=== PATIENT | male | born 1935 | race Caucasian/White ===

== ENCOUNTER 2018-05-05 09:26 | Inpatient (IN) | payer OTHER ==
[~2018-05-05] VITALS: Ht 180.3 cm; Wt 97.4 kg
[~2018-05-05 09:26] MED LIST: ACET325 PO; ALPR.25 PO; ASPI325 PO; CARV3.125 PO; CHLORTABS4 MG PO; CYAN1000 PO; FOLI1 PO; FURO20 PO; GABA100 PO; LISI20 PO; LOSA50; METTREX2.5 PO; MUCUS RELIEF200 MG PO; NAPR220; NIAC500; NIAC500 PO; OMEP10ER; OMEP20ER; OMEPRAZOLE MAGN20 MG PO; OXYM.05NI; POTA8 PO; PRED5 PO; PSYL5.85P PO; SPIR25 PO; SULF500A PO
[2018-05-05 10:26] LABS: BASOPHILS ABSOLUTE AUTO 0.02 K/mm3 (0.00-0.23); BASOPHILS PERCENT AUTO 0 % (0-2); EOSINOPHILS ABSOLUTE AUTO 0.03 K/mm3 (0.00-0.68); EOSINOPHILS PERCENT AUTO 0 % (0-6); Hematocrit 34.6 % (37.0-53.0); Hemoglobin 11.3 g/dL (13.5-17.5); IMMATURE GRAN PERCENT AUTO 1 % (0-1); LYMPHOCYTES ABSOLUTE AUTO 0.56 K/mm3 (0.84-5.20); LYMPHOCYTES PERCENT AUTO 4 % (21-46); MONOCYTES ABSOLUTE AUTO 0.81 K/mm3 (0.16-1.47); MONOCYTES PERCENT AUTO 6 % (4-13); Mean Corpuscular HGB 35.9 pg (26.0-34.0); Mean Corpuscular HGB Conc 32.7 g/dL (31.5-36.5); Mean Corpuscular Volume 110 fL (80-100); Mean Platelet Volume 10.7 fL (9.1-12.4); NEUTROPHILS ABSOLUTE AUTO 11.95 K/mm3 (1.96-9.15); NEUTROPHILS PERCENT AUTO 89 % (41-73); Platelet Count 154 K/mm3 (150-400); RDW Coefficient Variation 14.5 % (11.7-14.2); RDW Standard Deviation 58.3 fL (35.1-46.3); Red Blood Cell Count 3.15 M/mm3 (4.30-5.90); White Blood Cell Count 13.47 K/mm3 (4.00-11.30)
[2018-05-05 11:12] LABS: Albumin, Blood 3.3 g/dL (3.4-5.0); Bilirubin, Total 1.4 mg/dL (0.1-1.0); Calcium, Blood 8.6 mg/dL (8.5-10.1); Creatinine, Blood 1.67 mg/dL (0.60-1.20); Globulin, Blood 3.2 g/dL (2.2-4.0); Potassium, Blood 4.1 mmol/L (3.5-5.5); Total Protein, Blood 6.5 g/dL (6.4-8.2); Troponin I 0.236 ng/mL (0.000-0.040)
[2018-05-05] MEDS ORDERED: CYAN500 PO (13:29)
[2018-05-05 13:44] LABS: International Normalized Ratio 1.13; Prothrombin Time Results 11.6 Sec (9.7-11.5)
[2018-05-05 16:12] LABS: Appearance, Urine Clear (Clear); Bilirubin, Urine Neg (Neg); Blood, Urine 3+ (Neg); Color, Urine Yellow (P-Yellow); Glucose Qualitative, Urine Neg (Neg); Ketones, Urine 2+ (Neg); Leukocyte Esterase, Urine Neg (Neg); Nitrite, Urine Neg (Neg); Protein, Urine 2+ (Neg); Urobilinogen, Urine NORM (Normal)
[2018-05-05 16:26] LABS: Bacteria Few /hpf; Squamous Epithelial Cells Few /hpf (Few); White Blood Cells, Urine 0-2 /hpf (0-5)
[2018-05-06 05:34] LABS: BASOPHILS ABSOLUTE AUTO 0.01 K/mm3 (0.00-0.23); BASOPHILS PERCENT AUTO 0 % (0-2); EOSINOPHILS PERCENT AUTO 0 % (0-6); Hematocrit 32.1 % (37.0-53.0); Hemoglobin 10.6 g/dL (13.5-17.5); IMMATURE GRAN ABSOLUTE AUTO 0.05 K/mm3 (0.00-0.10); IMMATURE GRAN PERCENT AUTO 1 % (0-1); LYMPHOCYTES ABSOLUTE AUTO 0.28 K/mm3 (0.84-5.20); LYMPHOCYTES PERCENT AUTO 3 % (21-46); MONOCYTES ABSOLUTE AUTO 0.12 K/mm3 (0.16-1.47); MONOCYTES PERCENT AUTO 1 % (4-13); Mean Corpuscular HGB 35.8 pg (26.0-34.0); Mean Corpuscular Volume 108 fL (80-100); Mean Platelet Volume 11.1 fL (9.1-12.4); NEUTROPHILS ABSOLUTE AUTO 7.95 K/mm3 (1.96-9.15); NEUTROPHILS PERCENT AUTO 95 % (41-73); Platelet Count 159 K/mm3 (150-400); RDW Coefficient Variation 14.1 % (11.7-14.2); RDW Standard Deviation 55.2 fL (35.1-46.3); Red Blood Cell Count 2.96 M/mm3 (4.30-5.90); White Blood Cell Count 8.41 K/mm3 (4.00-11.30)
[2018-05-06 06:21] LABS: Anion Gap 12 mmol/L (6-16); Blood Urea Nitrogen 33 mg/dL (8-24); Bun/Creatinine Ratio 28.9 (12.0-20.0); CO2, Blood 22 mmol/L (21-32); Calcium, Blood 8.4 mg/dL (8.5-10.1); Chloride, Blood 105 mmol/L (98-108); Creatinine, Blood 1.14 mg/dL (0.60-1.20); Glomerular Filtration Rate >60 (60-); Glucose, Blood 138 mg/dL (70-99); Potassium, Blood 3.7 mmol/L (3.5-5.5); Sodium, Blood 139 mmol/L (136-145)
[2018-05-07 05:00] LABS: BASOPHILS ABSOLUTE AUTO 0.01 K/mm3 (0.00-0.23); BASOPHILS PERCENT AUTO 0 % (0-2); EOSINOPHILS PERCENT AUTO 0 % (0-6); Hematocrit 31.1 % (37.0-53.0); Hemoglobin 10.2 g/dL (13.5-17.5); IMMATURE GRAN ABSOLUTE AUTO 0.09 K/mm3 (0.00-0.10); IMMATURE GRAN PERCENT AUTO 1 % (0-1); LYMPHOCYTES ABSOLUTE AUTO 0.76 K/mm3 (0.84-5.20); LYMPHOCYTES PERCENT AUTO 7 % (21-46); MONOCYTES ABSOLUTE AUTO 0.59 K/mm3 (0.16-1.47); MONOCYTES PERCENT AUTO 5 % (4-13); Mean Corpuscular HGB 35.3 pg (26.0-34.0); Mean Corpuscular HGB Conc 32.8 g/dL (31.5-36.5); Mean Corpuscular Volume 108 fL (80-100); Mean Platelet Volume 10.9 fL (9.1-12.4); NEUTROPHILS ABSOLUTE AUTO 10.23 K/mm3 (1.96-9.15); NEUTROPHILS PERCENT AUTO 88 % (41-73); Platelet Count 157 K/mm3 (150-400); RDW Coefficient Variation 14.3 % (11.7-14.2); Red Blood Cell Count 2.89 M/mm3 (4.30-5.90); White Blood Cell Count 11.68 K/mm3 (4.00-11.30)
[2018-05-07 05:18] LABS: Albumin, Blood 2.4 g/dL (3.4-5.0); Anion Gap 9 mmol/L (6-16); Blood Urea Nitrogen 35 mg/dL (8-24); CO2, Blood 23 mmol/L (21-32); Calcium, Blood 8.2 mg/dL (8.5-10.1); Chloride, Blood 109 mmol/L (98-108); Glomerular Filtration Rate >60 (60-); Glucose, Blood 118 mg/dL (70-99); Phosphorus, Blood 2.4 mg/dL (2.5-4.9); Potassium, Blood 3.6 mmol/L (3.5-5.5); Sodium, Blood 141 mmol/L (136-145)
[2018-05-09 06:25] LABS: Anion Gap 8 mmol/L (6-16); Blood Urea Nitrogen 26 mg/dL (8-24); Bun/Creatinine Ratio 34.2 (12.0-20.0); CO2, Blood 22 mmol/L (21-32); Calcium, Blood 8.5 mg/dL (8.5-10.1); Chloride, Blood 111 mmol/L (98-108); Creatinine, Blood 0.76 mg/dL (0.60-1.20); Glomerular Filtration Rate >60 (60-); Glucose, Blood 122 mg/dL (70-99); Potassium, Blood 4.3 mmol/L (3.5-5.5); Sodium, Blood 141 mmol/L (136-145)
[2018-05-09] MEDS ORDERED: BISA10S PR (14:45)
[2018-05-09] MEDS ORDERED: BENZ100A PO (14:45)
[2018-05-09] MEDS ORDERED: CULTURELLE1 EACH PO (14:46)
[2018-05-09] MEDS ORDERED: LEVO750 PO (14:46)
[2018-05-09] MEDS ORDERED: DOCU100 PO (14:46)
== END 2018-05-09 15:08 | disposition home or self-care (01) | DRG 871 ==
LOC: ER 09:26 → MEDS 14:18
PROVIDERS: Emergency Medicine; Hospitalist; Internal Medicine
DX: A41.9 Sepsis, unspecified organism (principal); J69.0 Pneumonitis due to inhalation of food and vomit; N17.9 Acute kidney failure, unspecified; R04.2 Hemoptysis; I50.22 Chronic systolic (congestive) heart failure; Z85.46 Personal history of malignant neoplasm of prostate; Z87.891 Personal history of nicotine dependence; M06.9 Rheumatoid arthritis, unspecified; Z85.819 Personal history of malignant neoplasm of unspecified site of lip, oral cavity, and pharynx; Z92.3 Personal history of irradiation; Z79.82 Long term (current) use of aspirin; Z92.21 Personal history of antineoplastic chemotherapy; I11.0 Hypertensive heart disease with heart failure; J45.909 Unspecified asthma, uncomplicated; B96.1 Klebsiella pneumoniae [K. pneumoniae] as the cause of diseases classified elsewhere; E87.70 Fluid overload, unspecified
CPT/HCPCS: 36415; 70491; 71046; 71260; 74220; 80048; 80053; 80069; 81001; 83605; 83880; 84145; 84484; 85018; 85025; 85610; 87040; 87070; 87077; 87186; 87205; 93005; 93010; 93306; 94640; 94760; 94762; 96365; 96375; 99285-25; J0456; J0696; J1650; J1720; J2930; J7030; J7050; Q9967

== ENCOUNTER → 2018-08-04 | Outpatient (CLI) | payer OTHER ==
[~2018-08-04] MED LIST changes: +BENZ100A PO; +BISA10S PR; +CULTURELLE1 EACH PO; +CYAN500 PO; +DOCU100 PO; +LEVO750 PO
[2018-08-04 11:29] LABS: BASOPHILS ABSOLUTE AUTO 0.03 K/mm3 (0.00-0.23); BASOPHILS PERCENT AUTO 0 % (0-2); EOSINOPHILS ABSOLUTE AUTO 0.02 K/mm3 (0.00-0.68); EOSINOPHILS PERCENT AUTO 0 % (0-6); Hematocrit 33.2 % (37.0-53.0); Hemoglobin 10.6 g/dL (13.5-17.5); IMMATURE GRAN ABSOLUTE AUTO 0.04 K/mm3 (0.00-0.10); IMMATURE GRAN PERCENT AUTO 1 % (0-1); LYMPHOCYTES PERCENT AUTO 13 % (21-46); MONOCYTES ABSOLUTE AUTO 0.75 K/mm3 (0.16-1.47); MONOCYTES PERCENT AUTO 10 % (4-13); Mean Corpuscular HGB Conc 31.9 g/dL (31.5-36.5); Mean Corpuscular Volume 110 fL (80-100); Mean Platelet Volume 10.2 fL (9.1-12.4); NEUTROPHILS ABSOLUTE AUTO 5.82 K/mm3 (1.96-9.15); NEUTROPHILS PERCENT AUTO 76 % (41-73); Platelet Count 211 K/mm3 (150-400); RDW Coefficient Variation 16.9 % (11.7-14.2); RDW Standard Deviation 68.6 fL (35.1-46.3); Red Blood Cell Count 3.03 M/mm3 (4.30-5.90); White Blood Cell Count 7.66 K/mm3 (4.00-11.30)
== END | disposition home or self-care (01) ==
LOC: LAB SHORT 08:45 → LAB UCHC 08:45 → EDSTATUS 13:33
PROVIDERS: Internal Medicine Rheumatology
DX: M06.9 Rheumatoid arthritis, unspecified (principal)
CPT/HCPCS: 84450; 85025; 85651

== ENCOUNTER 2018-12-13 10:58 | Day surgery (SDC) | payer OTHER ==
[~2018-12-13 10:58] MED LIST changes: -ACET325 PO; -ASPI325 PO; +Aspir 8181 MG PO; +Feverall650 MG PR; -LISI20 PO; +LISI5 PO; -OMEPRAZOLE MAGN20 MG PO; +OMEPRAZOLE20 MG PO; -PRED5 PO; +Prednisone10 MG PO
== END 2018-12-14 22:59 | disposition home or self-care (01) ==
LOC: WOUND 10:58
DX: L97.521 Non-pressure chronic ulcer of other part of left foot limited to breakdown of skin (principal); L03.116 Cellulitis of left lower limb; I11.0 Hypertensive heart disease with heart failure; I50.22 Chronic systolic (congestive) heart failure; M06.9 Rheumatoid arthritis, unspecified; Z85.46 Personal history of malignant neoplasm of prostate

== ENCOUNTER 2018-12-22 11:21 | Day surgery (SDC) | payer OTHER | END 2018-12-22 23:27 | disposition home or self-care (01) | LOC: WOUND 11:21 | DX: L97.521 Non-pressure chronic ulcer of other part of left foot limited to breakdown of skin (principal); L03.116 Cellulitis of left lower limb; I10 Essential (primary) hypertension; M06.9 Rheumatoid arthritis, unspecified; I73.9 Peripheral vascular disease, unspecified; I11.0 Hypertensive heart disease with heart failure; I50.9 Heart failure, unspecified ==

== ENCOUNTER 2018-12-27 10:58 | Day surgery (SDC) | payer OTHER ==
[2018-12-27] MEDS ORDERED: Monodox100 MG PO (16:28)
== END 2018-12-27 22:49 | disposition home or self-care (01) ==
LOC: WOUND 10:58
DX: L97.522 Non-pressure chronic ulcer of other part of left foot with fat layer exposed (principal); I11.0 Hypertensive heart disease with heart failure; I50.22 Chronic systolic (congestive) heart failure; I73.9 Peripheral vascular disease, unspecified; F41.9 Anxiety disorder, unspecified
CPT/HCPCS: 36415; 73700; 80053; 85025; 87070; 87075; 87077; 87147; 87186; 87205; 96365; 99283-25; J2020

== ENCOUNTER 2019-01-03 10:58 | Day surgery (SDC) | payer OTHER ==
[~2019-01-03 10:58] MED LIST changes: +Monodox100 MG PO
== END 2019-01-03 23:11 | disposition home or self-care (01) ==
LOC: WOUND 10:58
DX: L97.522 Non-pressure chronic ulcer of other part of left foot with fat layer exposed (principal); I11.0 Hypertensive heart disease with heart failure; I50.22 Chronic systolic (congestive) heart failure; I73.9 Peripheral vascular disease, unspecified; F41.9 Anxiety disorder, unspecified; Z86.718 Personal history of other venous thrombosis and embolism
CPT/HCPCS: G0463

== ENCOUNTER 2019-01-10 10:48 | Day surgery (SDC) | payer OTHER | END 2019-01-10 23:43 | disposition home or self-care (01) | LOC: WOUND 10:48 | DX: L97.522 Non-pressure chronic ulcer of other part of left foot with fat layer exposed (principal); I11.0 Hypertensive heart disease with heart failure; I50.22 Chronic systolic (congestive) heart failure; I73.9 Peripheral vascular disease, unspecified; F41.9 Anxiety disorder, unspecified; Z86.718 Personal history of other venous thrombosis and embolism ==

== ENCOUNTER 2019-01-25 00:37 | Day surgery (SDC) | payer OTHER | END 2019-01-25 22:54 | disposition home or self-care (01) | LOC: WOUND 00:37 | DX: L97.522 Non-pressure chronic ulcer of other part of left foot with fat layer exposed (principal) | CPT/HCPCS: G0463 ==

== ENCOUNTER 2019-01-31 00:13 | Day surgery (SDC) | payer OTHER | END 2019-01-31 22:48 | disposition home or self-care (01) | LOC: WOUND 00:13 | PROC: 0JBR0ZZ Excision of Left Foot Subcutaneous Tissue and Fascia, Open Approach (ICD-10-PCS; principal; 2019-01-31) | DX: L97.522 Non-pressure chronic ulcer of other part of left foot with fat layer exposed (principal); M86.9 Osteomyelitis, unspecified; I73.9 Peripheral vascular disease, unspecified; I42.9 Cardiomyopathy, unspecified; F41.9 Anxiety disorder, unspecified; I11.0 Hypertensive heart disease with heart failure; I50.22 Chronic systolic (congestive) heart failure; M06.9 Rheumatoid arthritis, unspecified; Z85.21 Personal history of malignant neoplasm of larynx; Z85.46 Personal history of malignant neoplasm of prostate ==

== ENCOUNTER 2019-02-07 00:14 | Day surgery (SDC) | payer OTHER | END 2019-02-07 23:01 | disposition home or self-care (01) | LOC: WOUND 00:14 | DX: L97.521 Non-pressure chronic ulcer of other part of left foot limited to breakdown of skin (principal); M86.9 Osteomyelitis, unspecified; I11.0 Hypertensive heart disease with heart failure; I50.9 Heart failure, unspecified; M06.9 Rheumatoid arthritis, unspecified; Z85.46 Personal history of malignant neoplasm of prostate; G62.9 Polyneuropathy, unspecified; I50.22 Chronic systolic (congestive) heart failure; F41.9 Anxiety disorder, unspecified; I42.9 Cardiomyopathy, unspecified ==

== ENCOUNTER 2019-02-14 00:19 | Day surgery (SDC) | payer OTHER | END 2019-02-14 22:52 | disposition home or self-care (01) | LOC: WOUND 00:19 | DX: L97.521 Non-pressure chronic ulcer of other part of left foot limited to breakdown of skin (principal); M86.9 Osteomyelitis, unspecified; I11.0 Hypertensive heart disease with heart failure; I50.22 Chronic systolic (congestive) heart failure; M06.9 Rheumatoid arthritis, unspecified; Z85.46 Personal history of malignant neoplasm of prostate; G62.9 Polyneuropathy, unspecified; I42.9 Cardiomyopathy, unspecified; I73.9 Peripheral vascular disease, unspecified; Z85.21 Personal history of malignant neoplasm of larynx ==

== ENCOUNTER 2019-02-21 00:20 | Day surgery (SDC) | payer OTHER | END 2019-02-21 23:34 | disposition home or self-care (01) | LOC: WOUND 00:20 | DX: L97.529 Non-pressure chronic ulcer of other part of left foot with unspecified severity (principal); M86.9 Osteomyelitis, unspecified ==

== ENCOUNTER 2019-02-28 08:50 | Day surgery (SDC) | payer OTHER ==
[~2019-02-28 08:50] MED LIST changes: -ATROPINE 0.01%-10 ML SL; -Azulfidine500 MG PO; -Coreg12.5 MG PO; -FERSU300 PO; -FURO80 PO; -METO25ER PO; -MORP20L PO; -ONDA4ODT PO; -THERA1 EACH PO; -Tessalon200 MG PO
== END 2019-02-28 23:00 | disposition home or self-care (01) ==
LOC: WOUND 08:50
DX: L97.529 Non-pressure chronic ulcer of other part of left foot with unspecified severity (principal); M86.9 Osteomyelitis, unspecified; I73.9 Peripheral vascular disease, unspecified; I11.0 Hypertensive heart disease with heart failure; I50.22 Chronic systolic (congestive) heart failure

== ENCOUNTER → 2019-02-28 | Outpatient (CLI) | payer OTHER ==
[~2019-02-28] MED LIST changes: +ATROPINE 0.01%-10 ML SL; +Azulfidine500 MG PO; +Coreg12.5 MG PO; +FERSU300 PO; +FURO80 PO; +METO25ER PO; +MORP20L PO; +ONDA4ODT PO; +THERA1 EACH PO; +Tessalon200 MG PO
[2019-02-28 13:11] LABS: BASOPHILS ABSOLUTE AUTO 0.03 K/mm3 (0.00-0.23); BASOPHILS PERCENT AUTO 0 % (0-2); EOSINOPHILS ABSOLUTE AUTO 0.08 K/mm3 (0.00-0.68); EOSINOPHILS PERCENT AUTO 1 % (0-6); Hemoglobin 9.2 g/dL (13.5-17.5); IMMATURE GRAN ABSOLUTE AUTO 0.18 K/mm3 (0.00-0.10); IMMATURE GRAN PERCENT AUTO 2 % (0-1); LYMPHOCYTES ABSOLUTE AUTO 0.62 K/mm3 (0.84-5.20); LYMPHOCYTES PERCENT AUTO 7 % (21-46); MONOCYTES ABSOLUTE AUTO 0.53 K/mm3 (0.16-1.47); MONOCYTES PERCENT AUTO 6 % (4-13); Mean Corpuscular HGB 35.4 pg (26.0-34.0); Mean Corpuscular HGB Conc 32.9 g/dL (31.5-36.5); Mean Corpuscular Volume 108 fL (80-100); NEUTROPHILS ABSOLUTE AUTO 7.26 K/mm3 (1.96-9.15); NEUTROPHILS PERCENT AUTO 84 % (41-73); NRBC ABSOLUTE 0.04 K/mm3 (0.00-0.02); NRBC Auto 0.5 /100 WBC (0.0-0.2); Platelet Count 324 K/mm3 (150-400); RDW Coefficient Variation 14.4 % (11.7-14.2); RDW Standard Deviation 55.6 fL (35.1-46.3)
[2019-02-28 13:33] LABS: Alanine Aminotransfer (ALT/SGP 41 U/L (12-78); Albumin, Blood 2.8 g/dL (3.4-5.0); Albumin/Globulin Ratio 0.9 (0.8-1.8); Alk Phos 59 U/L (50-136); Anion Gap 14 mmol/L (6-16); Aspartate Aminotrans (AST/SGOT 53 U/L (12-37); Bilirubin, Total 0.5 mg/dL (0.1-1.0); Blood Urea Nitrogen 34 mg/dL (8-24); Bun/Creatinine Ratio 31.5 (12.0-20.0); CO2, Blood 23 mmol/L (21-32); Calcium, Blood 8.4 mg/dL (8.5-10.1); Chloride, Blood 92 mmol/L (98-108); Creatinine, Blood 1.08 mg/dL (0.60-1.20); Globulin, Blood 3.1 g/dL (2.2-4.0); Glomerular Filtration Rate >60 (60-); Glucose, Blood 117 mg/dL (70-99); Potassium, Blood 3.8 mmol/L (3.5-5.5); Sodium, Blood 129 mmol/L (136-145); Total Protein, Blood 5.9 g/dL (6.4-8.2)
== END | disposition home or self-care (01) ==
LOC: LAB 12:46 → LAB SHORT 12:46
PROVIDERS: Internal Medicine
DX: D64.9 Anemia, unspecified (principal); M06.00 Rheumatoid arthritis without rheumatoid factor, unspecified site; M62.81 Muscle weakness (generalized); R53.81 Other malaise; R53.83 Other fatigue
CPT/HCPCS: 80053; 85025; 85651; 86140

== ENCOUNTER 2019-03-07 00:07 | Day surgery (SDC) | payer OTHER ==
[2019-03-07] MEDS ORDERED: FERSU300 PO (13:58)
[2019-03-07] MEDS ORDERED: METO25ER PO (14:00)
[2019-03-07] MEDS ORDERED: FURO80 PO (14:02)
[2019-03-07] MEDS ORDERED: THERA1 EACH PO (14:02)
[2019-03-07] MEDS ORDERED: Azulfidine500 MG PO (14:02)
== END 2019-03-07 23:11 | disposition home or self-care (01) ==
LOC: WOUND 00:07
DX: L97.529 Non-pressure chronic ulcer of other part of left foot with unspecified severity (principal); M86.9 Osteomyelitis, unspecified; I11.0 Hypertensive heart disease with heart failure; I50.22 Chronic systolic (congestive) heart failure; G62.9 Polyneuropathy, unspecified; M06.9 Rheumatoid arthritis, unspecified; R53.1 Weakness

== ENCOUNTER 2019-03-07 10:19 | Inpatient (IN) | payer OTHER ==
[~2019-03-07] VITALS: Ht 180.3 cm; Wt 85.3 kg
[2019-03-07 11:20] LABS: BASOPHILS ABSOLUTE AUTO 0.02 K/mm3 (0.00-0.23); BASOPHILS PERCENT AUTO 0 % (0-2); EOSINOPHILS PERCENT AUTO 0 % (0-6); Hematocrit 31.8 % (37.0-53.0); Hemoglobin 10.4 g/dL (13.5-17.5); IMMATURE GRAN ABSOLUTE AUTO 0.16 K/mm3 (0.00-0.10); IMMATURE GRAN PERCENT AUTO 1 % (0-1); LYMPHOCYTES ABSOLUTE AUTO 0.34 K/mm3 (0.84-5.20); LYMPHOCYTES PERCENT AUTO 3 % (21-46); MONOCYTES ABSOLUTE AUTO 0.32 K/mm3 (0.16-1.47); MONOCYTES PERCENT AUTO 3 % (4-13); Mean Corpuscular HGB 36.1 pg (26.0-34.0); Mean Corpuscular HGB Conc 32.7 g/dL (31.5-36.5); Mean Corpuscular Volume 110 fL (80-100); Mean Platelet Volume 10.5 fL (9.1-12.4); NEUTROPHILS ABSOLUTE AUTO 10.23 K/mm3 (1.96-9.15); NEUTROPHILS PERCENT AUTO 92 % (41-73); NRBC ABSOLUTE 0.09 K/mm3 (0.00-0.02); NRBC Auto 0.8 /100 WBC (0.0-0.2); Platelet Count 268 K/mm3 (150-400); RDW Coefficient Variation 15.4 % (11.7-14.2); RDW Standard Deviation 61.1 fL (35.1-46.3); Red Blood Cell Count 2.88 M/mm3 (4.30-5.90); White Blood Cell Count 11.07 K/mm3 (4.00-11.30)
[2019-03-07 11:44] LABS: Bilirubin, Total 0.7 mg/dL (0.1-1.0); Bun/Creatinine Ratio 26.4 (12.0-20.0); Calcium, Blood 8.9 mg/dL (8.5-10.1); Creatinine, Blood 1.29 mg/dL (0.60-1.20); Potassium, Blood 4.5 mmol/L (3.5-5.5); Troponin I 0.045 ng/mL (0.000-0.040)
[2019-03-07] MEDS ORDERED: FERSU300 PO (13:58)
[2019-03-07] MEDS ORDERED: METO25ER PO (14:00)
[2019-03-07] MEDS ORDERED: Azulfidine500 MG PO (14:02)
[2019-03-07] MEDS ORDERED: THERA1 EACH PO (14:02)
[2019-03-07] MEDS ORDERED: FURO80 PO (14:02)
--- NOTE | 2019-03-07 17:15 | NUR ---
SHIFT SUMMARY ED ADMIT THIS AFTERNOON. PATIENT DENIES OLSEN, NAUSEA, AND SHORTNESS OF BREATH AT REST. PATIENT STATES HE FEELS WINDED EASILY WHITH ACTIVITY. PATIENT UP SBA TO BSC OR BR. PICTURES TAKED OF WOUND ON LEFT FOOT. PATIENT ORIENTED TO ROOM. CALL LIGHT IN REACH.
--- NOTE | 2019-03-07 23:22 | NUR ---
V-TACH PER TELE MONITOR, PT STARTED HAVING RUNS OF V-TACH THIS EVENING, WITH THE FIRST 8 BEAT RUN AT 2050, WITH TWO MORE RUNS OF 8 AN 10 BEATS NOTED AT 2245 AND 2257. THE PT DOES HAVE A PACEMAKER/DEFIB. STRIPS OF THE EVENTS WERE SHOWN TO ZULEMA ANGUIANO AND JASS. PER ZULEMA ANGUIANO, STRIPS SHOW PT'S PACEMAKER IS CONVERTING THE PT'S HEART RATE BACK TO SINUS TACH AFTER RUNS OF V-TACH. PT'S K+ AND MAG ARE WNL, NO CHANGES IN ORDERS AT THIS TIME. WILL CONTINUE TO MONITOR.
[2019-03-08] LABS: Calcium, Blood 8.4 mg/dL (8.5-10.1); Creatinine, Blood 1.26 mg/dL (0.60-1.20); Magnesium, Blood 1.7 mg/dL (1.6-2.4); Potassium, Blood 4.3 mmol/L (3.5-5.5)
[2019-03-08 05:15] LABS: BASOPHILS ABSOLUTE AUTO 0.02 K/mm3 (0.00-0.23); BASOPHILS PERCENT AUTO 0 % (0-2); EOSINOPHILS ABSOLUTE AUTO 0.02 K/mm3 (0.00-0.68); EOSINOPHILS PERCENT AUTO 0 % (0-6); Hematocrit 30.4 % (37.0-53.0); IMMATURE GRAN ABSOLUTE AUTO 0.18 K/mm3 (0.00-0.10); IMMATURE GRAN PERCENT AUTO 2 % (0-1); LYMPHOCYTES ABSOLUTE AUTO 0.55 K/mm3 (0.84-5.20); LYMPHOCYTES PERCENT AUTO 5 % (21-46); MONOCYTES ABSOLUTE AUTO 0.54 K/mm3 (0.16-1.47); MONOCYTES PERCENT AUTO 5 % (4-13); Mean Corpuscular HGB 36.1 pg (26.0-34.0); Mean Corpuscular HGB Conc 32.9 g/dL (31.5-36.5); Mean Corpuscular Volume 110 fL (80-100); Mean Platelet Volume 10.4 fL (9.1-12.4); NEUTROPHILS ABSOLUTE AUTO 9.12 K/mm3 (1.96-9.15); NEUTROPHILS PERCENT AUTO 87 % (41-73); Platelet Count 216 K/mm3 (150-400); RDW Coefficient Variation 15.4 % (11.7-14.2); RDW Standard Deviation 60.8 fL (35.1-46.3); Red Blood Cell Count 2.77 M/mm3 (4.30-5.90); White Blood Cell Count 10.43 K/mm3 (4.00-11.30)
[2019-03-08 05:39] LABS: Magnesium, Blood 2.2 mg/dL (1.6-2.4)
[2019-03-08 05:50] LABS: Bun/Creatinine Ratio 27.3 (12.0-20.0); Calcium, Blood 8.6 mg/dL (8.5-10.1); Creatinine, Blood 1.28 mg/dL (0.60-1.20)
--- NOTE | 2019-03-08 07:33 | NUR ---
SHIFT SUMMARY PT IS AN 83 Y/O MALE, ADMITTED FOR CHF EXACERBATION. HE IS A&0 X 3, AND A SBA IN THE ROOM. DURING THE NIGHT, PT HAD MULTIPLE RUNS OF V-TACH PER TELE MONITOR WHICH STARTED APPROXIMATELY 2019 (SEE PREVIOUS NOTE). WHEN PT HAD TWO MORE RUNS OF 14 AND 16 BEATS OF VTACH, HOSPITALIST DR BARRETT WAS CONSULTED. HE ORDERED ONE TIME 2MG OF IV MAGNESIUM TO BRING MAG LEVELS TO > 2.0. PT CONTINUED TO HAVE RUNS OF V-TACH SPORADICALLY DURING THE NIGHT. THIS AM STARTING AT MISSY 0513, PT BEGAN HAVING MULTIPLE EPISODES OF 8-9 BEAT VTACH WITHIN A MINUTE OF EACH OTHER. THE HOSPITALIST DR BARRETT WAS AGAIN CONSULTED, WITH NO CHANGES IN ORDERS AT THAT TIME. PT REMAINS ASYMPTOMATIC, NO C/O CHEST PAIN, NAUSEA, LIGHTHEADNESS OR SOB. PT ALSO REPORTED EPISODES OF DRY HEAVING "BECAUSE OF THE FLEM" AFTER TAKING PILLS OR OTHER ORAL INTAKE. NO COMPLAINTS OF ACUTE SOB. VITALS OTHERWISE REMAINED STABLE. NO OTHER ACUTE CHANGES IN PT CONDITION NOTED. PT DID NOT SLEEP DURING THE NIGHT. REPORT GIVEN TO ONCOMING RN.
--- NOTE | 2019-03-08 08:07 | NUR ---
VTACH RN NOTIFIED BY PATTERNMAKER PLASTER THAT PATIENT IS STILL HAVING FREQUENT RUNS OF VTACH AND PVCS. HR 96, BP 101/65, PT DENIES CHEST PAIN, SOB, DIZZINESS. HOSPITALIST DR LR NOTIFIED. HE STATES NO EKG OR PACER INTERROGATION NEEDED AT THIS TIME, WILL REVIEW CHART AND TELE STRIPS. WILL CONTINUE TO MONITOR.
[2019-03-08 13:51] LABS: Percent Saturation 9.8 % (20.0-50.0)
--- NOTE | 2019-03-08 18:08 | NUR ---
Called to meet with family to clarify code status. pt states older polst at home with drn status. We reviewed his wishes with his daughter christian we also reviewed advance directives, POA and having a will and letting family know what his wishes were. We completed a new polst for DNR. Ptient still wants basic care and treatments just no intubation or extronianry care or life support. Pt very concerned about missing his home health visit for his wound care. Assited him in calling [employer] [facility]. Undate HH charge nurse Nadine Tao. pt getting fatigued so ended conversation. He is very connected to his HH as pt progresses and time may come for hospice suggest Celframe ciara speak with him and his daughter. Will review with physician on prognosis.
--- NOTE | 2019-03-08 20:08 | NUR ---
SHIFT SUMMARY PT IS A&O X4, HE CAN AMBULATE TO THE BATHROOM WITH [address] LR EVALUATED PATIENT CHART AND TELE STRIPS. CONCLUDED THAT THE ABNORMAL RHYTHM THAT LOOKED LIKE VTACH WAS THE PATIENT'S UNDERLYING AFIB WITH RVR AND BBB. IF IT WAS VTACH THE DEFIBRILATION FEATURE WOULD SHOCK THE PT. DR LR WAS INFORMED ABOUT THE PATIENT'S C/O PHLEGM AND COUGHING WITH WATER AND SWALLOWING PILLS, SPEECH CONSULT ORDERED. CODE STATUS CHANGED WITH PALLIATIVE CARE AND PATIENT'S DAUGHTER, SEE NOTE. L FOOT DRESSING OVER OSTEOMYELITIS SITE IS C/D/I, NO EDEMA/REDNESS NOTED TO EITHER LEG.
[2019-03-09 05:21] LABS: Free Thyroxine 1.19 ng/dL (0.70-1.60)
[2019-03-09 05:22] LABS: Triiodothyronine, Free 1.56 pg/mL (2.18-3.98)
--- NOTE | 2019-03-09 07:13 | NUR ---
SHIFT SUMMARY PT A/O USING URINAL IN BED BUT ALSO SBA C CANE TO BA. DOES GET SOB C EXERTION. SEEMS TO COUGH AND CHOKE ON PILLS C WATER BUT APPLESAUCE BETTER. HE WAS ABLE TO SLEEP T/O NIGHT. CALL LIGHT IN REACH.
--- NOTE | 2019-03-09 15:56 | NUR ---
ASSUMED CARE: PT RESTING IN BED, FAMILY AT BEDSIDE. DR LR DISCUSSED PROGNOSIS WITH THEM, MAKING PT COMFORT CARE WITH PLAN TO GO HOME WITH HOSPICE. FIELD TECHNICIAN AT BEDSIDE AT THIS TIME. ACCOUNT DIRECTOR AWARE
--- NOTE | 2019-03-09 16:49 | NUR ---
Pt visit this afternoon. Spoke with Dr Lozano prior to visit and discussed case. Dr Lozano has discussed goals of care with Pt and family. Pt and family have chosen comfort care and hospice. Pt is resting in bed and reports a tolerable 1/10 pain in his lower back. Pt reports mild dyspnea that is managed. SOB worsens with exertion and speaking. Pt denies anxiety and nausea. Engaged in therapeutic discussion regarding choice for comfort care and hospice. Encouraged Pt to discuss fears and concerns. Answered questions regarding hospice and educated on hospice philosophy. Pt reports plan is to discharge home tomorrow. Pt reports currently receiving [facility] services and choses [facility]. Spoke with hospice patient care secretary Farnaz and [facility] and discussed case. Farnaz reports she will leave report with hospice patient care secretary Charito to relay discussion to hospice patient care secretary Sravani. Received call from [facility] Nurse Aaliyah and discussed case. Aaliyah inquires about delaying Pt's discharge from hospital until Wednesday and can admit Pt to hospice services on Wednesday. Palliative Care will remain available.
--- NOTE | 2019-03-09 18:02 | NUR ---
SHIFT SUMMARY: PT IS NOW COMFORT CARE. FAMILY AT BEDSIDE. MEDICATED X1 FOR PAIN, MEDS CRUSHED IN APPLESAUCE WITH COUGHING NOTED WITH LIQUIDS. NO NEEDS OR CONCERNS AT THIS TIME.
[2019-03-10 05:17] LABS: Bun/Creatinine Ratio 27.6 (12.0-20.0); Creatinine, Blood 1.34 mg/dL (0.60-1.20); Potassium, Blood 4.4 mmol/L (3.5-5.5)
--- NOTE | 2019-03-10 06:15 | NUR ---
SHIFT SUMMARY PT ON CC. NO C/O PAIN. SBA C CANE TO BA. HE WAS ABLE TO SLEEP T/O NIGHT. REFUSED TO HAVE HIS LEFT ARM ON PILLOW FOR THE SWELLING. CALL LIGHT IN REACH.
[2019-03-10] MEDS ORDERED: ATROPINE 0.01%-10 ML SL (11:08)
[2019-03-10] MEDS ORDERED: Tessalon200 MG PO (11:08)
[2019-03-10] MEDS ORDERED: Coreg12.5 MG PO (11:09)
[2019-03-10] MEDS ORDERED: MORP20L PO (11:10)
[2019-03-10] MEDS ORDERED: ONDA4ODT PO (11:10)
--- NOTE | 2019-03-10 12:00 | NUR ---
DISCHARGE AT 1141 PATIENT DISCHARGED HOME WITH DAUGHTER AND HOME HOSPICE. DAUGHTER HAS SPOKEN WITH HOSPICE AND DR LR ABOUT PLAN FOR CARE. PAPER PRESCRIPTION FOR ROXANOL SENT WITH DAUGHTER. ORIGINAL POLST SENT WITH DAUGHTER, COPY IN CHART. DC PACKET AND MED CHANGES EXPLAINED TO PATIENT'S DAUGHTER. DAUGHTER VERBALIZED UNDERSTANDING AND SIGNED DC FORM. IV REMOVED. EDEMA TO L ARM IMPROVED. PT WAS ABLE TO SWALLOW PILLS CRUSHED IN APPLESAUCE WITH MINIMAL COUGHING.
== END 2019-03-10 11:41 | disposition hospice, home (50) | DRG 291 ==
LOC: ER 10:19 → MEDS 12:50 → ENPENDDIS 03-10 09:01 → MEDS 03-10 11:41
PROVIDERS: Emergency Medicine; Internal Medicine; Nurse Practitioner Acute Care; ADMIT Internal Medicine
DX: I13.0 Hypertensive heart and chronic kidney disease with heart failure and stage 1 through stage 4 chronic kidney disease, or unspecified chronic kidney disease (principal); I50.23 Acute on chronic systolic (congestive) heart failure; E44.0 Moderate protein-calorie malnutrition; E87.1 Hypo-osmolality and hyponatremia; N17.9 Acute kidney failure, unspecified; M86.8X7 Other osteomyelitis, ankle and foot; N18.3 Chronic kidney disease, stage 3 (moderate); I35.0 Nonrheumatic aortic (valve) stenosis; K21.9 Gastro-esophageal reflux disease without esophagitis; I25.10 Atherosclerotic heart disease of native coronary artery without angina pectoris; E03.9 Hypothyroidism, unspecified; I48.2 Chronic atrial fibrillation; Z95.0 Presence of cardiac pacemaker; Z87.891 Personal history of nicotine dependence; I73.9 Peripheral vascular disease, unspecified; D63.1 Anemia in chronic kidney disease; Z51.5 Encounter for palliative care; Z85.46 Personal history of malignant neoplasm of prostate; M06.9 Rheumatoid arthritis, unspecified; I45.81 Long QT syndrome; D50.9 Iron deficiency anemia, unspecified; E78.5 Hyperlipidemia, unspecified; I95.89 Other hypotension; Z85.21 Personal history of malignant neoplasm of larynx; R13.10 Dysphagia, unspecified; Z68.26 Body mass index [BMI] 26.0-26.9, adult; Z91.14 Patient's other noncompliance with medication regimen; I42.9 Cardiomyopathy, unspecified; Z85.830 Personal history of malignant neoplasm of bone; Z66 Do not resuscitate; B95.61 Methicillin susceptible Staphylococcus aureus infection as the cause of diseases classified elsewhere
CPT/HCPCS: 36415; 71045; 71046; 74230; 80048; 80053; 82728; 83540; 83550; 83735; 83880; 84439; 84481; 84484; 85025; 92610; 92611; 93005; 93010; 93306; 96374; 99285-25; A9270; J1650; J1720; J1940; J2916; J3475; J7512